=== PATIENT | female | born 1970 | race Caucasian/White ===

== ENCOUNTER → 2021-08-29 | Outpatient (CLI) | payer OTHER ==
--- NOTE | 2021-09-01 08:01 | RAD ---
EXAMINATION: US PELVIS W/TV (PELVIC ULTRASOUND) HISTORY: Right pelvic pain, history of hysterectomy. TECHNIQUE: Sonography of the pelvis was performed by transvaginal and transabdominal (limited) techni ques. COMPARISON: None FINDINGS: Uterus: Hysterectomy. Ovaries: Not visualized. Pelvic free fluid: None. IMPRESSION: Nonvisualized ovaries. Hysterectomy. Multiple loops of bowel incidentally noted. Electronically signed by: Kulwinder Noyola DO (09/01/2021 7:59 AM) [facility]
--- NOTE | 2021-09-02 17:25 | RAD ---
Bilateral digital screening 2-D and 3-D (tomosynthesis) mammogram: Reason for examination: Routine screening. There are no prior studies available for comparison. Patient's last mammograms were performed over 10 years ago. Bilateral mammograms in CC and oblique projections were obtained with 2-D imaging and 3-D tomosynthes is imaging and reviewed on the workstation. Interpretation was made with the benefit of CAD. Findings: Breast density: Category C. The breasts are heterogeneously dense, which may obscure small masses. There are no suspicious masses, malignant appearing calcifications or architectural distortion. There is very small oval circumscribed masses in both breasts, likely due to cysts. The retroareolar pecto ral silicone breast implants show normal contour. There is implant capsule calcification on the left. Impression: No evidence of malignancy. ASSESSMENT: BI-RADS 2. Benign findings. Recommendations: Routine screening mammograms. This patient's information has been entered into a reminder system for the patient to be notified wit h the results of her examination and a target date for the next mammogram. Your patient's mammogram demonstrates that she has dense breast tissue (breast density category C or D), which could hide abnormalities, and if she has other risk factors for breast cancer that have bee n identified, she might benefit from supplemental screening tests that may be suggested by you as her ordering physician. Dense breast tissue, in and of itself, is a relatively common condition. Therefo re, this information is not provided to cause undue concern, but rather to raise your awareness and t o promote discussion with your patient regarding the presence of other risk factors, in addition to d ense breast tissue. Electronically signed by: Anika Bright MD (09/02/2021 5:23 PM) [id number]
== END ==
LOC: EDSTATUS 08:00 → US 08:50 → MAMMO 08:50
PROVIDERS: ATTEND Obstetrics & Gynecology
DX: Z12.31 Encounter for screening mammogram for malignant neoplasm of breast (principal)
CPT/HCPCS: 76830; 76856; 77063; 77067

== ENCOUNTER → 2021-09-01 | Outpatient (CLI) | payer OTHER ==
--- NOTE | 2021-09-19 09:38 | RAD ---
EXAMINATION: US PELVIS W/TV (PELVIC ULTRASOUND) HISTORY: Right pelvic pain, history of hysterectomy. TECHNIQUE: Sonography of the pelvis was performed by transvaginal and transabdominal (limited) techniques. COMPARISON: None FINDINGS: Uterus: Hysterectomy. Ovaries: Not visualized. Pelvic free fluid: None. IMPRESSION: Nonvisualized ovaries. Hysterectomy. Multiple loops of bowel incidentally noted. Electronically signed by: Kulwinder Noyola DO (09/01/2021 7:59 AM) [facility]
== END ==
LOC: US 08:50
PROVIDERS: ATTEND Obstetrics & Gynecology
DX: R10.31 Right lower quadrant pain (principal); Z90.710 Acquired absence of both cervix and uterus
CPT/HCPCS: 76830; 76856

== ENCOUNTER → 2021-12-03 | Outpatient (CLI) | payer OTHER | LOC: LAB 15:24 | PROVIDERS: ATTEND Internal Medicine Cardiovascular Disease | DX: Z20.822 Contact with and (suspected) exposure to COVID-19 (principal) | CPT/HCPCS: U0003 ==